=== PATIENT | female | born 1955 | race African-American/Black ===

== ENCOUNTER 2020-12-02 08:28 | Emergency (ER) | payer MEDICARE, MEDICAID ==
[~2020-12-02] VITALS: Ht 175.3 cm; Wt 64.0 kg
[2020-12-02 09:00] VITALS: BP 162/92
[2020-12-02] MEDS ORDERED: FLUORESCEIN SODIUM 1MG/STRIP RIGHTEYE ONE (09:15)
[2020-12-02] MEDS ORDERED: TETRACAINE 0.5% OPHTH DROPS 4ML RIGHTEYE ONE (09:15)
== END 2020-12-02 10:29 | disposition home or self-care (01) ==
LOC: ER 08:28
DX: S05.01XA Injury of conjunctiva and corneal abrasion without foreign body, right eye, initial encounter (principal); S00.83XA Contusion of other part of head, initial encounter; H52.10 Myopia, unspecified eye; Z88.0 Allergy status to penicillin; Z98.890 Other specified postprocedural states; W22.09XA Striking against other stationary object, initial encounter; Y93.89 Activity, other specified; Y92.012 Bathroom of single-family (private) house as the place of occurrence of the external cause
CPT/HCPCS: 70480; 99284

== ENCOUNTER 2021-12-03 20:31 | Emergency (ER) | payer MEDICARE, MEDICAID ==
[2021-12-03] MEDS ORDERED: TOPUD PO (22:31)
== END 2021-12-03 23:02 | disposition home or self-care (01) ==
LOC: ER 21:11
DX: S80.01XA Contusion of right knee, initial encounter (principal); R10.2 Pelvic and perineal pain; Z88.0 Allergy status to penicillin; V43.52XA Car driver injured in collision with other type car in traffic accident, initial encounter; Y93.89 Activity, other specified; Y92.488 Other paved roadways as the place of occurrence of the external cause
CPT/HCPCS: 72170; 73560; 99284